=== PATIENT | male | born 1990 | race Two or more races ===

== ENCOUNTER 2020-10-06 02:08 | Emergency (ER) | payer SELFPAY ==
[~2020-10-06] VITALS: Ht 170.2 cm; Wt 77.1 kg
--- NOTE | 2020-10-06 02:15 | NUR ---
CALLED FOR TRIAGE, NO ANSWER.
--- NOTE | 2020-10-06 02:20 | NUR ---
CALLED FOR TRIAGE, NO ANSWER.
--- NOTE | 2020-10-06 02:25 | NUR ---
CALLED FOR TRIAGE, NO ANSWER.
--- NOTE | 2020-10-06 04:51 | NUR ---
PT CAME BACK AND WANTS TO BE SEEN .
[2020-10-06 04:52] VITALS: BP 147/97
[2020-10-06] MEDS ORDERED: ACETAMINOPHEN ES 500 MG TABLET PO ONE (05:00)
[2020-10-06] MEDS ORDERED: ACETAMINOPHEN ES 500 MG TABLET ONE (05:47)
--- NOTE | 2020-10-06 06:28 | NUR ---
Patient refused written discharge instructions. Patient verbalizes understanding of verbal instructions. Patient is ambulatory with steady gait. Patient given list of available shelters in surrounding area. Patient discharged in stable condition. Written and verbal after care instructions given. Patient verbalizes understanding of instruction.
== END 2020-10-06 06:30 | disposition home or self-care (01) ==
LOC: ER 02:19
DX: G44.209 Tension-type headache, unspecified, not intractable (principal)